=== PATIENT | female | born 1960 | race African-American/Black ===

== ENCOUNTER 2017-02-11 04:49 | Emergency (ER) | payer OTHER ==
[~2017-02-11] VITALS: Ht 172.7 cm; Wt 82.0 kg
[2017-02-11 04:55] VITALS: BP 130/85
[2017-02-11] MEDS ORDERED: ACETAMINOPHEN 500MG TABLET PO ONE (05:45)
== END 2017-02-11 07:16 | disposition home or self-care (01) ==
LOC: ER 04:49
DX: S66.911A Strain of unspecified muscle, fascia and tendon at wrist and hand level, right hand, initial encounter (principal); Y08.89XA Assault by other specified means, initial encounter; Y93.89 Activity, other specified; Y99.8 Other external cause status; Y92.009 Unspecified place in unspecified non-institutional (private) residence as the place of occurrence of the external cause
CPT/HCPCS: 29125; 73110; 99284

== ENCOUNTER 2017-03-29 23:49 | Observation (INO) | payer OTHER, MEDICAID ==
[~2017-03-29] VITALS: Ht 172.7 cm; Wt 84.8 kg
[2017-03-30] MEDS ORDERED: ONDANSETRON HCL 4MG/2ML VIAL IV STA (00:18)
[2017-03-30] MEDS ORDERED: MORPHINE SULFATE 4 MG/ML CPJ (NOT FOR IM USE) IV STA (00:18)
[2017-03-30] MEDS ORDERED: SODIUM CHLORIDE 0.9% 1,000 ML IV ONE (00:18)
[2017-03-30 00:50] LABS: BASOPHILS % 0.9 % (0.0-2.0); EOSINOPHILS % 1.7 % (0.0-5.0); HEMATOCRIT. 36.8 % (36.0-48.0); HEMOGLOBIN. 11.8 g/dL (12.0-16.0); LYMPHOCYTES % 34.2 % (20.0-50.0); MEAN CORPUSCULAR HEMOGLOBIN 28.1 pg (28.0-32.0); MEAN CORPUSCULAR VOLUME 87.3 fL (81.0-99.0); MEAN PLATELET VOLUME 10.1 fl (7.4-10.4); MONOCYTES % 7.8 % (2.0-8.0); NEUTROPHILS % 55.4 % (40.0-76.0); PLATELET 204 x1000/uL (130-400); RED BLOOD CELL COUNT 4.22 mill/uL (4.2-5.4); RED CELL DISTRIBUTION WIDTH 14.4 % (11.6-14.6)
[2017-03-30 00:57] LABS: CHLORIDE 107 mEq/L (98-107); PROTHROMBIN TIME 10.3 sec
[2017-03-30 01:09] LABS: CARBON DIOXIDE 24 mEq/L (21-32); ETHANOL BLOOD 131 mg/dL
[2017-03-30 01:56] LABS: CLARITY URINE CLEAR (CLEAR); COLOR URINE YELLOW (YELLOW); GLUCOSE URINE NEGATIVE (NEGATIVE); KETONES URINE NEGATIVE (NEGATIVE); LEUKOCYTE ESTERASE URINE NEGATIVE (NEGATIVE); NITRITE URINE NEGATIVE (NEGATIVE); OCCULT BLOOD URINE NEGATIVE (NEGATIVE); PROTEIN URINE NEGATIVE (NEGATIVE); SPECIFIC GRAVITY URINE 1.009 (1.005-1.030); UROBILINOGEN URINE 0.2 E.U./dL (0.2-1.0)
[2017-03-30 02:13] LABS: *AMPHETAMINES SCREEN URINE NEGATIVE (NEGATIVE); *BARBITURATES SCREEN URINE NEGATIVE (NEGATIVE); *BENZODIAZEPINES SCREEN URINE NEGATIVE (NEGATIVE); *COCAINE SCREEN URINE PRESUMTIVE POSITIVE (NEGATIVE); CANNABINOID URINE SCREEN NEGATIVE (NEGATIVE); METHADONE URINE SCREEN NEGATIVE (NEGATIVE); OPIATES URINE SCREEN PRESUMTIVE POSITIVE (NEGATIVE); PHENCYCLIDINE URINE SCREEN NEGATIVE (NEGATIVE)
[2017-03-30] MEDS ORDERED: KETOROLAC 15MG/ML VIAL IV ONE (02:15)
[2017-03-30] MEDS ORDERED: ONDANSETRON HCL 4MG/2ML VIAL IV ONE (02:15)
[2017-03-30] MEDS ORDERED: MORPHINE SULFATE 4 MG/ML CPJ (NOT FOR IM USE) IV ONE (02:15)
[2017-03-30] MEDS ORDERED: SKIN ADHESIVE 0.7 GM EA TOP ONE (04:52)
[2017-03-30] MEDS ORDERED: BUPIVACAINE HCL 0.5% (5MG/ML) 50ML ONE (04:53)
[2017-03-30] MEDS ORDERED: PROPOFOL 200MG/20ML VIAL IV ONE (05:22)
[2017-03-30] MEDS ORDERED: FENTANYL CITRATE/PF 50MCG/ML 2ML VIAL ONE (05:24)
[2017-03-30] MEDS ORDERED: ROCURONIUM BROMIDE 10MG/ML VIAL 5ML IV ONE (05:25)
[2017-03-30] MEDS ORDERED: SUCCINYLCHOLINE CHLORIDE 200MG/10ML VIAL IV ONE (05:25)
[2017-03-30] MEDS ORDERED: EPHEDRINE SULFATE 50MG/ML VIAL ONE (05:31)
[2017-03-30] MEDS ORDERED: PHENYLEPHRINE HCL 10 MG/ML 1ML (IV VIAL) IV ONE (05:31)
[2017-03-30] MEDS ORDERED: ESMOLOL HCL 10MG/ML 10ML VIAL IV ONE (05:31)
[2017-03-30 06:00] VITALS: BP 159/94
[2017-03-30] MEDS ORDERED: ONDANSETRON HCL 4MG/2ML VIAL IV PRN (06:15)
[2017-03-30 08:00] VITALS: BP 148/89
[2017-03-30] MEDS ORDERED: DEXT 5%/0.45% NACL KCL 20MEQ/L 1,000 ML IV SCH (08:00)
[2017-03-30 09:42] VITALS: BP 148/89
[2017-03-30 12:01] VITALS: BP 141/77
[2017-03-30] MEDS ORDERED: SODIUM CHLORIDE 0.9% INJ 3ML FLUSH IVF SCH (14:00)
== END 2017-03-30 12:40 | disposition home or self-care (01) ==
LOC: ER 23:49 → EDBEDREQ 03-30 03:09 → EDBEDREQTM 03-30 03:09 → EDBEDREQSVC 03-30 03:09 → EDBEDREQTM 03-30 03:18 → EDBEDREQSVC 03-30 03:18 → INTOOBSV 03-30 03:28 → 5EST 03-30 03:28 → ENRESERV 03-30 05:37
PROVIDERS: ADMIT Internal Medicine; ATTEND Internal Medicine
DX: K43.9 Ventral hernia without obstruction or gangrene (principal); F31.9 Bipolar disorder, unspecified; I10 Essential (primary) hypertension
CPT/HCPCS: 36415; 71010; 74176; 80053; 80305; 81003; 83605; 83690; 83880; 85025; 85610; 85730; 86850; 86900; 86901; 93005; 96361; 96374; 96375; 96376; 99285; 99406; G0168; G0378; G0482; J0171; J0330; J1885; J2270; J2370; J2405; J3010; J3490; J7030; J2704